=== PATIENT | male | born 1985 | race African-American/Black ===

== ENCOUNTER 2021-03-21 00:50 | Emergency (ER) | payer MEDICAID ==
[~2021-03-21] VITALS: Ht 170.2 cm; Wt 62.7 kg
[2021-03-21] MEDS ORDERED: LORazepam 1 MG TABLET PO ONE (02:00)
[2021-03-21 03:43] VITALS: BP 122/64
[2021-03-21 03:59] LABS: COVID AG,FIA SOURCE NASOPHARYNGEAL
== END 2021-03-21 05:02 | disposition home or self-care (01) ==
LOC: EMS 00:55
DX: F25.9 Schizoaffective disorder, unspecified (principal); Z20.822 Contact with and (suspected) exposure to COVID-19
CPT/HCPCS: 87426; 99284; G0480; G0481

== ENCOUNTER 2022-04-25 13:22 | Inpatient (IN) | payer MEDICAID ==
[~2022-04-25] VITALS: Ht 175.3 cm; Wt 74.4 kg
[2022-04-25] MEDS ORDERED: ARIP5TAB37 PO (13:57)
[2022-04-25] MEDS ORDERED: MIRT-89 PO (13:57)
[2022-04-25] MEDS ORDERED: DIVA-80 PO (13:57)
[2022-04-25 14:28] LABS: BASOPHILS % (AUTO) 0.7 % (0.0-2.0); EOSINOPHILS % (AUTO) 2.7 % (1.0-6.0); HEMATOCRIT 40.6 % (41-53); HEMOGLOBIN 13.1 g/dL (13.5-17.5); LYMPHOCYTES # (AUTO) 1.2 K/uL (1.0-4.8); LYMPHOCYTES % (AUTO) 28.1 % (22.0-44.0); MEAN CORPUSCULAR HEMOGLOBIN 27.6 pg (26.0-34.0); MEAN CORPUSCULAR HGB CONC 32.3 G/dL (31.0-37.0); MEAN CORPUSCULAR VOLUME 86 fL (80-100); MONOCYTES # (AUTO) 0.5 K/uL (0.1-1.0); MONOCYTES % (AUTO) 11.2 % (2.0-9.0); NEUTROPHILS # (AUTO) 2.5 K/uL (1.8-7.7); NEUTROPHILS % (AUTO) 57.3 % (40.0-70.0); PLATELET COUNT (AUTO) 176 K/uL (150-450); RED BLOOD CELL COUNT(AUTO) 4.75 MIL/uL (4.50-5.90); RED CELL DISTRIBUTION WIDTH 15.4 % (11.5-14.5)
[2022-04-25 14:35] LABS: ANION GAP 8 mmol/L (8-16); CALCIUM, TOTAL 9.1 mg/dL (8.8-10.5); CARBON DIOXIDE 28 mmol/L (22-29); CHLORIDE 105 mmol/L (98-107); CREATININE 1.13 mg/dL (0.60-1.30); GLOMERULAR FILTR. RATE CALC > 60 mL/min (>60); GLUCOSE,RANDOM 69 mg/dL (70-110); POTASSIUM 3.4 mmol/L (3.5-5.1); SODIUM SERUM 141 mmol/L (136-145); UREA NITROGEN, BLOOD 12 mg/dL (7-18)
[2022-04-25 14:41] LABS: ALANINE AMINOTRANSFERASE 56 U/L (12-78); ALBUMIN 3.6 g/dL (3.4-5.0); ALKALINE PHOSPHATASE 44 U/L (46-116); ASPARTATE AMINOTRANSFERASE 59 U/L (15-37); BILIRUBIN,TOTAL 0.8 mg/dL (0.1-1.0)
[2022-04-25] MEDS ORDERED: ZOLPIDEM TARTRATE 10 MG TABLET PO PRN (15:00)
[2022-04-25 15:42] LABS: COVID AG,FIA SOURCE NASAL SWAB
[2022-04-25] MEDS: HALOPERIDOL 5 MG TABLET PO PRN (20:01)
[2022-04-25] MEDS: LORazepam 2 MG TABLET PO PRN (20:01)
[2022-04-25 21:04] VITALS: BP 132/87
[2022-04-25 21:13] VITALS: BP 132/87
[2022-04-25] MEDS ORDERED: PETROLATUM,WHITE 28 GM JELLY TP PRN (23:15)
[2022-04-25] MEDS ORDERED: OMEPRAZOLE 20 MG CAPSULE PO PRN (23:15)
[2022-04-25] MEDS ORDERED: BENZOCAINE/MENTHOL LOZENGE PO PRN (23:15)
[2022-04-25] MEDS ORDERED: BACITRACIN 28 GM OINTMENT TP PRN (23:15)
[2022-04-25] MEDS ORDERED: LOPERAMIDE HCL 2 MG CAPSULE PO PRN (23:15)
[2022-04-25] MEDS ORDERED: MAG HYDROX/AL HYDROX/SIMETH ES 30 ML SUSPENSION UDCUP PO PRN (23:15)
[2022-04-25] MEDS ORDERED: ONDANSETRON HCL 4 MG TABLET PO PRN (23:15)
[2022-04-25] MEDS ORDERED: MAGNESIUM HYDROXIDE SUSPENSION 30 ML UDCUP PO PRN (23:15)
[2022-04-25] MEDS ORDERED: CloNIDine HCL 0.1 MG TABLET PO PRN (23:15)
[2022-04-25] MEDS ORDERED: IBUPROFEN 600 MG TABLET PO PRN (23:15)
[2022-04-25] MEDS ORDERED: ALBUTEROL SULFATE HFA 90 MCG/PUFF 8 GM INHALER IH PRN (23:15)
[2022-04-25] MEDS ORDERED: DOCUSATE SODIUM 100 MG CAPSULE PO PRN (23:15)
[2022-04-26 04:30] VITALS: BP 105/65
[2022-04-26 08:18] VITALS: BP 141/58
[2022-04-26 08:28] LABS: HEMOGLOBIN A1C 5.9 % (3.8-5.6)
[2022-04-26 08:45] LABS: ANION GAP 12 mmol/L (8-16); CALCIUM, TOTAL 9.3 mg/dL (8.8-10.5); CARBON DIOXIDE 28 mmol/L (22-29); CHLORIDE 106 mmol/L (98-107); CHOL/HDL RATIO 2.7 (4.2-7.3); CHOLESTEROL 206 mg/dL (131-200); CREATININE 1.06 mg/dL (0.60-1.30); HDL CHOLESTEROL 76 mg/dL (40-60); LDL CHOL (CALC.) 120 mg/dL (0-130); POTASSIUM 3.6 mmol/L (3.5-5.1); SODIUM SERUM 146 mmol/L (136-145); THYROID STIMULATING HORMONE 0.81 uIU/mL (0.36-3.74); TRIGLYCERIDES 49 mg/dL (15-150); UREA NITROGEN, BLOOD 14 mg/dL (7-18)
[2022-04-26 08:49] LABS: GLOMERULAR FILTR. RATE CALC > 60 mL/min (>60); GLUCOSE,RANDOM 45 mg/dL (70-110)
[2022-04-26] MEDS ORDERED: GLUCAGON,HUMAN RECOMBINANT 1 MG VIAL IM PRN (09:30)
[2022-04-26 09:31] LABS: GLUCOMETER DEV NAME(LOC) BV2S.; GLUCOSE,POINT OF CARE 65 MG/DL (70-110)
[2022-04-26 12:22] LABS: GLUCOMETER DEV NAME(LOC) BV2S.; GLUCOSE,POINT OF CARE 118 MG/DL (70-110)
[2022-04-26 16:11] VITALS: BP 116/83
[2022-04-26] MEDS: RisperiDONE 2 MG TABLET PO SCH (16:27)
[2022-04-27 01:21] VITALS: BP 111/79
[2022-04-27 07:11] LABS: HEMOGLOBIN A1C 5.9 % (3.8-5.6)
[2022-04-27 07:24] LABS: PHOSPHORUS 4.7 mg/dL (2.5-4.9)
[2022-04-27 08:04] VITALS: BP 119/80
[2022-04-27] MEDS: RisperiDONE 2 MG TABLET PO SCH ×2 (08:27→17:03)
[2022-04-27] MEDS: HALOPERIDOL 5 MG TABLET PO PRN ×2 (08:27→19:11)
[2022-04-27] MEDS: LORazepam 2 MG TABLET PO PRN ×2 (08:27→19:11)
[2022-04-27 16:26] VITALS: BP 110/76
[2022-04-27 17:22] LABS: GLUCOMETER DEV NAME(LOC) BV2S.; GLUCOSE,POINT OF CARE 76 MG/DL (70-110)
[2022-04-27 17:22] LABS: GLUCOMETER DEV NAME(LOC) BV2S.; GLUCOSE,POINT OF CARE 117 MG/DL (70-110)
[2022-04-28 00:28] VITALS: BP 107/72
[2022-04-28 06:16] LABS: GLUCOMETER DEV NAME(LOC) BV2S.; GLUCOSE,POINT OF CARE 70 MG/DL (70-110)
[2022-04-28 08:15] VITALS: BP 111/62
[2022-04-28] MEDS: RisperiDONE 2 MG TABLET PO SCH ×2 (08:27→17:09)
[2022-04-28] MEDS: LORazepam 2 MG TABLET PO PRN (10:10)
[2022-04-28 16:41] VITALS: BP 120/61
[2022-04-28 16:41] LABS: GLUCOMETER DEV NAME(LOC) BV2S.; GLUCOSE,POINT OF CARE 126 MG/DL (70-110)
[2022-04-28] MEDS: ACETAMINOPHEN 325 MG TABLET PO PRN (20:39)
[2022-04-28 22:05] VITALS: BP 114/71
[2022-04-29] VITALS: BP 98/60
[2022-04-29] MEDS: ACETAMINOPHEN 325 MG TABLET PO PRN ×2 (00:51→20:45)
[2022-04-29 02:22] VITALS: BP 111/70
[2022-04-29] MEDS: MULTIVITAMINS WITH MINERALS, THERAPEUTIC TABLET PO SCH (08:31)
[2022-04-29] MEDS: RisperiDONE 2 MG TABLET PO SCH ×2 (08:31→17:55)
[2022-04-29 08:36] VITALS: BP 120/69
[2022-04-29 09:28] LABS: BASOPHILS % (AUTO) 0.8 % (0.0-2.0); EOSINOPHILS % (AUTO) 0.1 % (1.0-6.0); HEMATOCRIT 41.7 % (41-53); HEMOGLOBIN 13.5 g/dL (13.5-17.5); LYMPHOCYTES # (AUTO) 0.6 K/uL (1.0-4.8); LYMPHOCYTES % (AUTO) 20.3 % (22.0-44.0); MEAN CORPUSCULAR HEMOGLOBIN 27.8 pg (26.0-34.0); MEAN CORPUSCULAR HGB CONC 32.3 G/dL (31.0-37.0); MEAN CORPUSCULAR VOLUME 86 fL (80-100); MONOCYTES % (AUTO) 31.9 % (2.0-9.0); NEUTROPHILS # (AUTO) 1.5 K/uL (1.8-7.7); NEUTROPHILS % (AUTO) 46.9 % (40.0-70.0); PLATELET COUNT (AUTO) 149 K/uL (150-450); RED BLOOD CELL COUNT(AUTO) 4.85 MIL/uL (4.50-5.90); RED CELL DISTRIBUTION WIDTH 15.9 % (11.5-14.5)
[2022-04-29 09:34] LABS: ALANINE AMINOTRANSFERASE 42 U/L (12-78); ALBUMIN 3.7 g/dL (3.4-5.0); ALKALINE PHOSPHATASE 46 U/L (46-116); ANION GAP 12 mmol/L (8-16); ASPARTATE AMINOTRANSFERASE 28 U/L (15-37); BILIRUBIN,TOTAL 0.4 mg/dL (0.1-1.0); CARBON DIOXIDE 30 mmol/L (22-29); CHLORIDE 104 mmol/L (98-107); GLOMERULAR FILTR. RATE CALC > 60 mL/min (>60); GLUCOSE,RANDOM 88 mg/dL (70-110); POTASSIUM 3.6 mmol/L (3.5-5.1); SODIUM SERUM 146 mmol/L (136-145); TOTAL PROTEIN, SERUM 6.8 g/dL (6.4-8.2); UREA NITROGEN, BLOOD 14 mg/dL (7-18)
[2022-04-29 10:44] LABS: APPEARANCE,URINE CLEAR (CLEAR); BILIRUBIN,URINE NEGATIVE (NEGATIVE); GLUCOSE, URINE (UA) NEGATIVE (NEGATIVE); LEUKOCYTE ESTERASE ,URINE NEGATIVE (NEGATIVE); NITRATE,URINE NEGATIVE (NEGATIVE); OCCULT BLOOD,URINE NEGATIVE (NEGATIVE); PROTEIN,URINE 100-200,SEE CONFIRM mg/dL (NEGATIVE); SPECIFIC GRAVITIY, URINE 1.049 (1.003-1.030)
[2022-04-29 10:53] LABS: AMPHET/METH SCREEN,URINE NEGATIVE (NEGATIVE); BARBITURATE SCREEN, URINE NEGATIVE (NEGATIVE); BENZODIAZEPINES SCREEN,URINE NEGATIVE (NEGATIVE); CANNABINOID SCREEN,URINE NEGATIVE (NEGATIVE); COCAINE SCREEN,URINE NEGATIVE (NEGATIVE); METHADONE SCREEN, URINE NEGATIVE (NEGATIVE); OPIATE SCREEN,URINE NEGATIVE (NEGATIVE)
[2022-04-29 10:54] LABS: PHENCYCLIDINE SCREEN,URINE NEGATIVE (NEGATIVE)
[2022-04-29 11:11] LABS: SULFOSALICYLIC ACID,URINE Negative (Negative)
[2022-04-29 11:16] LABS: GLUCOMETER DEV NAME(LOC) BV2S.; GLUCOSE,POINT OF CARE 104 MG/DL (70-110)
[2022-04-29 15:00] LABS: GLUCOMETER DEV NAME(LOC) POC.BV
[2022-04-29 16:01] LABS: GLUCOMETER DEV NAME(LOC) POC.BV
[2022-04-29 17:35] VITALS: BP 112/63
[2022-04-30 06:26] LABS: GLUCOMETER DEV NAME(LOC) BV2S.; GLUCOSE,POINT OF CARE 82 MG/DL (70-110)
[2022-04-30 06:35] VITALS: BP 119/70
[2022-04-30] MEDS: MULTIVITAMINS WITH MINERALS, THERAPEUTIC TABLET PO SCH (08:59)
[2022-04-30] MEDS: RisperiDONE 2 MG TABLET PO SCH ×2 (08:59→16:42)
[2022-04-30] MEDS: LORazepam 2 MG TABLET PO PRN (08:59)
[2022-04-30 09:06] VITALS: BP 115/70
[2022-04-30 17:06] LABS: GLUCOMETER DEV NAME(LOC) BV2S.; GLUCOSE,POINT OF CARE 224 MG/DL (70-110)
[2022-04-30 17:32] VITALS: BP 100/67
[2022-05-01 00:52] VITALS: BP 98/61
[2022-05-01 06:36] LABS: GLUCOMETER DEV NAME(LOC) BV2S.; GLUCOSE,POINT OF CARE 91 MG/DL (70-110)
[2022-05-01] MEDS: MEGESTROL ACETATE 400 MG/10 ML SUSPENSION UDCUP PO SCH (08:42)
[2022-05-01] MEDS: ASCORBIC ACID 500 MG TABLET PO SCH (08:42)
[2022-05-01] MEDS: RisperiDONE 2 MG TABLET PO SCH ×2 (08:42→16:02)
[2022-05-01 08:51] VITALS: BP 104/61
[2022-05-01] MEDS: MULTIVITAMINS WITH MINERALS, THERAPEUTIC TABLET PO SCH (08:57)
[2022-05-01] MEDS: OMEGA-3/DHA/EPA/FISH OIL 1,000 MG CAPSULE PO SCH (08:57)
[2022-05-01 16:23] VITALS: BP 115/62
[2022-05-01 17:01] LABS: GLUCOMETER DEV NAME(LOC) BV2S.; GLUCOSE,POINT OF CARE 110 MG/DL (70-110)
[2022-05-02 00:52] VITALS: BP 109/62
[2022-05-02 08:28] VITALS: BP 111/61
[2022-05-02] MEDS: RisperiDONE 2 MG TABLET PO SCH ×2 (08:45→16:51)
[2022-05-02] MEDS: MEGESTROL ACETATE 400 MG/10 ML SUSPENSION UDCUP PO SCH (08:45)
[2022-05-02] MEDS: ASCORBIC ACID 500 MG TABLET PO SCH (08:45)
[2022-05-02] MEDS: OMEGA-3/DHA/EPA/FISH OIL 1,000 MG CAPSULE PO SCH (09:00)
[2022-05-02] MEDS: MULTIVITAMINS WITH MINERALS, THERAPEUTIC TABLET PO SCH (09:00)
[2022-05-02 16:12] VITALS: BP 105/68
[2022-05-02 16:26] LABS: GLUCOMETER DEV NAME(LOC) POC.BV
[2022-05-02 18:06] LABS: GLUCOMETER DEV NAME(LOC) BV2S.; GLUCOSE,POINT OF CARE 126 MG/DL (70-110)
[2022-05-03 01:01] VITALS: BP 106/62
[2022-05-03 06:41] LABS: GLUCOMETER DEV NAME(LOC) BV2S.; GLUCOSE,POINT OF CARE 73 MG/DL (70-110)
[2022-05-03 08:11] VITALS: BP 109/79
[2022-05-03] MEDS: ASCORBIC ACID 500 MG TABLET PO SCH (10:08)
[2022-05-03] MEDS: OMEGA-3/DHA/EPA/FISH OIL 1,000 MG CAPSULE PO SCH (10:08)
[2022-05-03] MEDS: MULTIVITAMINS WITH MINERALS, THERAPEUTIC TABLET PO SCH (10:08)
[2022-05-03] MEDS: RisperiDONE 2 MG TABLET PO SCH ×2 (10:09→16:16)
[2022-05-03] MEDS: MEGESTROL ACETATE 400 MG/10 ML SUSPENSION UDCUP PO SCH (10:12)
[2022-05-03 16:12] VITALS: BP 103/61
[2022-05-03 17:16] LABS: GLUCOMETER DEV NAME(LOC) BV2S.; GLUCOSE,POINT OF CARE 101 MG/DL (70-110)
[2022-05-04 00:38] VITALS: BP 106/64
[2022-05-04 06:46] LABS: GLUCOMETER DEV NAME(LOC) BV2S.; GLUCOSE,POINT OF CARE 81 MG/DL (70-110)
[2022-05-04 08:29] VITALS: BP 111/67
[2022-05-04] MEDS: MEGESTROL ACETATE 400 MG/10 ML SUSPENSION UDCUP PO SCH (09:41)
[2022-05-04] MEDS: OMEGA-3/DHA/EPA/FISH OIL 1,000 MG CAPSULE PO SCH (09:42)
[2022-05-04] MEDS: RisperiDONE 2 MG TABLET PO SCH ×2 (09:42→16:24)
[2022-05-04] MEDS: ASCORBIC ACID 500 MG TABLET PO SCH (09:42)
[2022-05-04] MEDS: MULTIVITAMINS WITH MINERALS, THERAPEUTIC TABLET PO SCH (09:42)
[2022-05-04 16:10] VITALS: BP 112/78
[2022-05-04 17:01] LABS: GLUCOMETER DEV NAME(LOC) BV2S.; GLUCOSE,POINT OF CARE 100 MG/DL (70-110)
[2022-05-05 06:06] VITALS: BP 108/69
[2022-05-05 07:16] LABS: GLUCOMETER DEV NAME(LOC) BV2X.2; GLUCOSE,POINT OF CARE 92 MG/DL (70-110)
[2022-05-05 08:06] VITALS: BP 112/70
[2022-05-05] MEDS: MEGESTROL ACETATE 400 MG/10 ML SUSPENSION UDCUP PO SCH (08:45)
[2022-05-05] MEDS: OMEGA-3/DHA/EPA/FISH OIL 1,000 MG CAPSULE PO SCH (08:45)
[2022-05-05] MEDS: ASCORBIC ACID 500 MG TABLET PO SCH (08:45)
[2022-05-05] MEDS: MULTIVITAMINS WITH MINERALS, THERAPEUTIC TABLET PO SCH (08:45)
[2022-05-05] MEDS: RisperiDONE 2 MG TABLET PO SCH ×2 (08:46→16:25)
[2022-05-05 16:08] VITALS: BP 129/70
[2022-05-05 16:51] LABS: GLUCOMETER DEV NAME(LOC) BV2S.; GLUCOSE,POINT OF CARE 100 MG/DL (70-110)
[2022-05-06 06:20] VITALS: BP 118/74
[2022-05-06 06:26] LABS: GLUCOMETER DEV NAME(LOC) BV2S.; GLUCOSE,POINT OF CARE 96 MG/DL (70-110)
[2022-05-06 08:08] VITALS: BP 115/78
[2022-05-06 08:11] LABS: ANION GAP 8 mmol/L (8-16); CALCIUM, TOTAL 9.1 mg/dL (8.8-10.5); CARBON DIOXIDE 27 mmol/L (22-29); CHLORIDE 104 mmol/L (98-107); CREATININE 0.98 mg/dL (0.60-1.30); GLOMERULAR FILTR. RATE CALC > 60 mL/min (>60); GLUCOSE,RANDOM 88 mg/dL (70-110); SODIUM SERUM 139 mmol/L (136-145); UREA NITROGEN, BLOOD 18 mg/dL (7-18)
[2022-05-06] MEDS: RisperiDONE 2 MG TABLET PO SCH (08:36)
[2022-05-06] MEDS: MULTIVITAMINS WITH MINERALS, THERAPEUTIC TABLET PO SCH (08:36)
[2022-05-06] MEDS: OMEGA-3/DHA/EPA/FISH OIL 1,000 MG CAPSULE PO SCH (08:36)
[2022-05-06] MEDS: ASCORBIC ACID 500 MG TABLET PO SCH (08:37)
[2022-05-06] MEDS: MEGESTROL ACETATE 400 MG/10 ML SUSPENSION UDCUP PO SCH (08:37)
[2022-05-06] MEDS ORDERED: RISP2TAB45 PO (10:28)
[2022-05-06] MEDS ORDERED: RISP2TAB86 PO (17:38)
== END 2022-05-06 14:17 | disposition home or self-care (01) | DRG 750 ==
LOC: EMS 13:22 → B2S 15:23
PROVIDERS: ADMIT Psychiatry & Neurology Psychiatry; ATTEND Psychiatry & Neurology Psychiatry
DX: F25.9 Schizoaffective disorder, unspecified (principal); U07.1 COVID-19; Z91.19 Patient's noncompliance with other medical treatment and regimen; F31.9 Bipolar disorder, unspecified; F41.9 Anxiety disorder, unspecified; G47.00 Insomnia, unspecified; K21.9 Gastro-esophageal reflux disease without esophagitis; E87.6 Hypokalemia; K59.00 Constipation, unspecified; F17.200 Nicotine dependence, unspecified, uncomplicated; Z78.9 Other specified health status
CPT/HCPCS: 80048; 80053; 80061; 80307; 81002; 81003; 82962; 83036; 83735; 84100; 84439; 84443; 85025; 99285; G0480; J1610

== ENCOUNTER 2022-09-17 12:00 | Inpatient (IN) | payer MEDICAID ==
[~2022-09-17] VITALS: Ht 175.3 cm; Wt 73.0 kg
[~2022-09-17 12:00] MED LIST: ASCO500 PO; MULT-1239 PO; RISP2TAB45 PO; RISP2TAB86 PO
[2022-09-17] MEDS ORDERED: ZOLPIDEM TARTRATE 10 MG TABLET PO PRN (15:30)
[2022-09-17] MEDS ORDERED: HALOPERIDOL 5 MG TABLET PO PRN (15:30)
[2022-09-17] MEDS ORDERED: LORazepam 2 MG TABLET PO PRN (15:30)
[2022-09-17] MEDS ORDERED: INFLUENZA VIRUS VACCINE QVS 2022-23 (6MO+)/PF 60 MCG/0.5 ML SYRINGE IM. ONE (16:45)
[2022-09-17 17:05] VITALS: BP 128/92
[2022-09-17 17:06] VITALS: BP 128/92
[2022-09-18 08:35] VITALS: BP 106/56
[2022-09-18] MEDS ORDERED: MAGNESIUM HYDROXIDE SUSPENSION 30 ML UDCUP PO PRN (11:30)
[2022-09-18] MEDS ORDERED: ACETAMINOPHEN 325 MG TABLET PO PRN (11:30)
[2022-09-18] MEDS ORDERED: GuaiFENesin/D-METHORPHAN [SUGAR-FREE] 200-20MG/10 ML SYRUP UDCUP PO PRN (11:30)
[2022-09-18] MEDS ORDERED: ONDANSETRON HCL 4 MG TABLET PO PRN (11:30)
[2022-09-18] MEDS ORDERED: PETROLATUM,WHITE 28 GM JELLY TP PRN (11:30)
[2022-09-18] MEDS ORDERED: MAG HYDROX/AL HYDROX/SIMETH ES 30 ML SUSPENSION UDCUP PO PRN (11:30)
[2022-09-18] MEDS ORDERED: NICOTINE 14 MG/24 HOUR PATCH TD PRN (11:30)
[2022-09-18] MEDS ORDERED: ALBUTEROL SULFATE HFA 90 MCG/PUFF 8 GM INHALER IH PRN (11:30)
[2022-09-18] MEDS ORDERED: DOCUSATE SODIUM 100 MG CAPSULE PO PRN (11:30)
[2022-09-18] MEDS ORDERED: CloNIDine HCL 0.1 MG TABLET PO PRN (11:30)
[2022-09-18] MEDS ORDERED: IBUPROFEN 400 MG TABLET PO PRN (11:30)
[2022-09-18] MEDS ORDERED: LOPERAMIDE HCL 2 MG CAPSULE PO PRN (11:30)
[2022-09-18] MEDS: ARIPiprazole 10 MG TABLET PO SCH ×2 (12:00→12:24)
[2022-09-18] MEDS: ESCITALOPRAM OXALATE 10 MG TABLET PO SCH ×2 (12:00→12:24)
[2022-09-18] MEDS ORDERED: HALOPERIDOL LACTATE 5 MG/ML VIAL ONE (13:27)
[2022-09-18] MEDS ORDERED: LORazepam 2 MG/ML VIAL ONE (13:27)
[2022-09-18] MEDS ORDERED: DiphenhydrAMINE HCL 50 MG/ML VIAL ONE (13:27)
[2022-09-18] MEDS ORDERED: LORazepam 2 MG/ML VIAL IM ONE (13:30)
[2022-09-18] MEDS ORDERED: DiphenhydrAMINE HCL 50 MG/ML VIAL IM ONE (13:30)
[2022-09-18] MEDS ORDERED: HALOPERIDOL LACTATE 5 MG/ML VIAL IM ONE (13:30)
[2022-09-18 14:37] VITALS: BP 110/68
[2022-09-18 20:13] VITALS: BP 114/64
[2022-09-19 08:24] VITALS: BP 135/90
[2022-09-19] MEDS: ARIPiprazole 10 MG TABLET PO SCH (09:00)
[2022-09-19] MEDS ORDERED: ASCORBIC ACID 500 MG TABLET PO SCH (09:00)
[2022-09-19] MEDS: ESCITALOPRAM OXALATE 10 MG TABLET PO SCH (09:00)
[2022-09-19] MEDS ORDERED: ARIP10TA38 PO (10:33)
[2022-09-19] MEDS ORDERED: ESCI10 PO (10:33)
== END 2022-09-19 13:26 | disposition left against medical advice (07) | DRG 750 ==
LOC: B3A 15:27
PROVIDERS: ADMIT Psychiatry & Neurology Child & Adolescent Psychiatry; ATTEND Psychiatry & Neurology Child & Adolescent Psychiatry
DX: F25.1 Schizoaffective disorder, depressive type (principal); G93.40 Encephalopathy, unspecified; I95.9 Hypotension, unspecified; G47.00 Insomnia, unspecified; F41.9 Anxiety disorder, unspecified; Z79.899 Other long term (current) drug therapy
CPT/HCPCS: J1200; J1630; J2060

== ENCOUNTER 2022-09-23 16:51 | Emergency (ER) | payer MEDICAID ==
[~2022-09-23] VITALS: Ht 175.3 cm; Wt 75.0 kg
[~2022-09-23 16:51] MED LIST changes: +ARIP10TA38 PO; -ASCO500 PO; +ESCI10 PO; -MULT-1239 PO; -RISP2TAB45 PO; -RISP2TAB86 PO
[2022-09-23 19:33] VITALS: BP 126/81
[2022-09-23 20:09] LABS: COVID AG,FIA SOURCE NASOPHARYNGEAL
== END 2022-09-23 21:12 | disposition home or self-care (01) ==
LOC: EMS 16:53
DX: R45.851 Suicidal ideations (principal); Z20.822 Contact with and (suspected) exposure to COVID-19; F20.9 Schizophrenia, unspecified; F32.9 Major depressive disorder, single episode, unspecified; F41.9 Anxiety disorder, unspecified
CPT/HCPCS: 99283